=== PATIENT | female | born 1960 | race Caucasian/White ===

== ENCOUNTER → 2016-06-19 | Outpatient (CLI) | payer OTHER ==
--- NOTE | ~2016-06-19 | MR32 ---
[facility] A Service of [facility] & [facility] RADIOLOGY TEXT RESULTS PATIENT: TIEN GUTIERREZ LOCATION: [facility] : 64 UNIT #: [id number] AGE: [address]: Shimon Amos MD SEX: F ORDER DR: [id number] [address] [address] [id number] O MR#: [id number] Acc #: [id number] NAME: TIEN GUTIERREZ : 1960 SEX: F STUDY DATE/TIME: 06/19/2016 15:45 UNIT: [facility] ROOM: STUDY DESCRIPTION: MR Cervical Wo Contrast Attending Physician: Shimon Amos M.D. Referring Physician: Shimon Amos M.D. Ordering Physician: Shimon Amos M.D. Primary Care Physician: Bonifacio Woodruff M.D. MRI CENTER REPORT This report is preliminary unless electronic signature is present. EXAM Cervical MRI. HISTORY Left-sided neck pain and limited range of motion with neck spasms chronically, but worse over the past 15 months. TECHNIQUE Multiplanar imaging of cervical spine was performed with short and long TR. FINDINGS Degenerative changes are seen at all cervical levels and there is reversal of normal cervical lordosis. At C2-3, there is moderate left facet hypertrophy and mild facet hypertrophy on the right. There is a small central disc osteophyte complex with mild central stenosis. Foraminal narrowing is mild on the left. At C3-4, the disc is narrowed. There is a central disc osteophyte complex. There is mild facet hypertrophy bilaterally. There is mild foraminal stenosis on the right. At C4-5, the disc is narrowed. There is broad-based posterior disc bulging with osteophyte. Foraminal narrowing is mild bilaterally and central stenosis is moderate. At C5-6, the disc is narrowed and there is broad-based posterior disc and osteophyte formation that extends to the uncovertebral joints on both sides. Central stenosis is severe with an AP diameter of the spinal canal between 8 and 9 mm. Foraminal stenosis is moderate bilaterally. At C6-7, the disc is narrowed and there is broad-based posterior disc and STS. [facility] A Service of [facility] & [facility] RADIOLOGY TEXT RESULTS PATIENT: TIEN GUTIERREZ LOCATION: [facility] : 64 UNIT #: [id number] AGE: [address]: Shimon Amos MD SEX: F ORDER DR: osteophyte formation that extends to both uncovertebral joints, worse on the right than on the left. Central spinal stenosis is moderately severe with an AP diameter of spinal canal of 1 cm. Foraminal stenosis is severe on the right and moderate on the left. At C7-T1, there is mild broad-based posterior disc and osteophyte without significant canal or foraminal narrowing. The cervical cord is normal in size and signal. There is no evidence of marrow edema and no paraspinous masses are seen. IMPRESSION Multilevel cervical degenerative disc and facet disease as described above level by level. Central stenosis is most severe at C5-6. Foraminal narrowing is asymmetrically worse on the right than on the left and present to a significant degree at both C5-6 and C6-7. No discrete disc herniation is seen. Dictated by... Marty Glasgow M.D. THIS IS AN ELECTRONICALLY VERIFIED REPORT Marty Glasgow M.D. at 06/20/2016 4:28 PM LEXI/nancy TD: 06/20/2016 10:35 JOB #: [id number] MRI CENTER REPORT Page 1 of 1
== END | disposition home or self-care (01) ==
LOC: SMRI 15:17
DX: M48.02 Spinal stenosis, cervical region (principal); M19.90 Unspecified osteoarthritis, unspecified site; M50.30 Other cervical disc degeneration, unspecified cervical region
CPT/HCPCS: 72141